=== PATIENT | female | born 1955 | race Hispanic/Latino ===

== ENCOUNTER 2016-11-01 08:29 | Emergency (ER) | payer OTHER ==
[~2016-11-01] VITALS: Ht 152.4 cm; Wt 95.0 kg
[~2016-11-01 08:29] MED LIST: GLIPIZIDE10 MG PO; LISINOPRIL20 MG PO; LOPID600 MG PO; METFORMIN1000 MG PO; METOPROL TAR25 MG PO; NAPROSYN500 MG PO; PRAVASTATIN20 MG PO
[2016-11-01] MEDS ORDERED: ONGLYZA5 MG PO (08:43)
[2016-11-01] MEDS ORDERED: HYDROCHLOROT25 MG PO (08:43)
[2016-11-01] MEDS ORDERED: LISINOPRIL20 MG PO (08:43)
[2016-11-01] MEDS ORDERED: LIPITOR20 MG PO (08:45)
[2016-11-01 09:14] VITALS: BP 131/78
== END 2016-11-01 09:14 | disposition home or self-care (01) | DRG 125 ==
LOC: ED 08:29
DX: H11.32 Conjunctival hemorrhage, left eye (principal)